=== PATIENT | female | born 1965 | race Two or more races ===

== ENCOUNTER → 2018-03-28 | Outpatient (CLI) | payer OTHER ==
[~2018-03-28] MED LIST: AMLO2.5T2 PO; CETI10CA12 PO; HYDR25TA6 PO; KETO10TA PO; LOSA100T6 PO
== END | disposition home or self-care (01) ==
LOC: RAD 08:04
PROVIDERS: ATTEND Emergency Medicine
DX: K76.0 Fatty (change of) liver, not elsewhere classified (principal)
CPT/HCPCS: 74018; 76700

== ENCOUNTER 2018-09-02 14:46 | Emergency (ER) | payer OTHER ==
[~2018-09-02] VITALS: Ht 157.5 cm; Wt 70.5 kg
[~2018-09-02 14:46] MED LIST changes: +LOSA100T14 PO; -LOSA100T6 PO
--- NOTE | 2018-09-02 15:21 | NUR ---
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
[2018-09-02 15:27] LABS: BASOPHILS # (AUTO) 0.02 x10^3/uL (0-0.1); BASOPHILS % (AUTO) 0 % (0-1); EOSINOPHILS # (AUTO) 0.03 x10^3/uL (0-0.4); EOSINOPHILS % (AUTO) 0 % (1-7); LYMPHOCYTES # (AUTO) 1.81 x10^3/uL (1-3.4); LYMPHOCYTES % (AUTO) 18 % (22-44); MD NO; MEAN CORPUSCULAR HEMOGLOBIN 28.7 pg (27.0-34.8); MEAN CORPUSCULAR HGB CONC 34.7 g/dL (32.4-35.8); MEAN CORPUSCULAR VOLUME 82.7 fL (80-100); MEAN PLATELET VOLUME 8.1 fL (7.4-10.4); MONOCYTES # (AUTO) 0.48 x10^3/uL (0.2-0.8); MONOCYTES % (AUTO) 5 % (2-9); NEUTROPHILS # (AUTO) 7.66 x10^3/uL (1.8-6.8); NEUTROPHILS % (AUTO) 77 % (42-75); PLATELET COUNT 271 x10^3/uL (130-400); RED BLOOD COUNT 4.68 x10^6/uL (3.82-5.3); RED CELL DISTRIBUTION WIDTH 13.2 % (9.6-15.2)
--- NOTE | 2018-09-02 15:30 | NUR ---
PT PLACED ON HEART MONITOR, BP CUFF, PULSE OX. CALL LIGHT WITHIN REACH, PT OFFERED WARM BLANKET.
[2018-09-02 15:42] LABS: ALANINE AMINOTRANSFERASE 35 U/L (12-78); ALBUMIN 4.4 g/dL (3.4-5.0); ANION GAP 11 mmol/L (5-15); CALCIUM 9.6 mg/dL (8.5-10.1); CHLORIDE 105 mmol/L (98-107); CREATININE 1.14 mg/dL (0.55-1.02)
[2018-09-02 15:47] LABS: ALKALINE PHOSPHATASE 126 U/L (45-117); BILIRUBIN,TOTAL 0.4 mg/dL (0.2-1.0); TOTAL PROTEIN 8.6 g/dL (6.4-8.2); TROPONIN I < 0.015 ng/mL (0.000-0.045)
[2018-09-02] MEDS ORDERED: OXYcodone/APAP 5/325MG TABLET ONE (16:13)
[2018-09-02] MEDS ORDERED: PROMETHAZINE 25 MG/ML, 1ML ONE (16:14)
--- NOTE | 2018-09-02 16:23 | NUR ---
PT TO CT.
[2018-09-02] MEDS ORDERED: PROMETHAZINE 25 MG/ML, 1ML IM ONE (16:30)
[2018-09-02] MEDS ORDERED: OXYcodone/APAP 5/325MG TABLET PO ONE (16:30)
--- NOTE | 2018-09-02 16:34 | NUR ---
PT MEDICATED PER ERP ORDER FOR 5/10 ARAUJO WITH NAUSEA. PT DENIES CP SINCE ED VISIT.
--- NOTE | 2018-09-02 16:50 | NUR ---
ALL RESULTS BACK, PT FOR RECHECK.
[2018-09-02 17:55] VITALS: BP 122/61
== END 2018-09-02 17:59 | disposition home or self-care (01) ==
LOC: ED 15:45
DX: R51 Headache (principal); M19.90 Unspecified osteoarthritis, unspecified site
CPT/HCPCS: 36415; 70450; 71045; 80053; 84484; 85025; 93005; 96372; 99284; J2550

== ENCOUNTER 2019-10-17 19:17 | Emergency (ER) | payer OTHER ==
[~2019-10-17] VITALS: Ht 160 cm; Wt 71.0 kg
--- NOTE | 2019-10-17 19:44 | NUR ---
High fever and ARAUJO which started today. She started with dizziness then vomiting. Denies CP. She is slightly SOB. Denies abd/flank pain. Patient is in NAD. Respirations even and unlabored.
[2019-10-17] MEDS ORDERED: ONDANSETRON ODT 4 MG PO ONE (20:00)
[2019-10-17] MEDS ORDERED: IBUPROFEN 800 MG TABLET PO ONE (20:00)
[2019-10-17] MEDS ORDERED: IBUPROFEN 800 MG TABLET ONE (20:01)
[2019-10-17] MEDS ORDERED: ACETAMINOPHEN 500 MG TABLET ONE (20:01)
[2019-10-17] MEDS ORDERED: ONDANSETRON ODT 4 MG ONE (20:04)
[2019-10-17 20:30] LABS: MICROSCOPIC NOT IND
[2019-10-17 20:31] LABS: BASOPHILS # (AUTO) 0.02 x10^3/uL (0-0.1); BASOPHILS % (AUTO) 0 % (0-1); EOSINOPHILS # (AUTO) 0.09 x10^3/uL (0-0.4); EOSINOPHILS % (AUTO) 1 % (1-7); LYMPHOCYTES # (AUTO) 0.89 x10^3/uL (1-3.4); LYMPHOCYTES % (AUTO) 9 % (22-44); MD NO; MEAN CORPUSCULAR HEMOGLOBIN 28.2 pg (27.0-34.8); MEAN CORPUSCULAR HGB CONC 33.2 g/dL (32.4-35.8); MEAN CORPUSCULAR VOLUME 85.1 fL (80-100); MEAN PLATELET VOLUME 7.7 fL (7.4-10.4); MONOCYTES # (AUTO) 0.53 x10^3/uL (0.2-0.8); MONOCYTES % (AUTO) 6 % (2-9); NEUTROPHILS # (AUTO) 8.03 x10^3/uL (1.8-6.8); NEUTROPHILS % (AUTO) 84 % (42-75); PLATELET COUNT 227 x10^3/uL (130-400); RED CELL DISTRIBUTION WIDTH 13.2 % (9.6-15.2)
[2019-10-17 20:34] LABS: CULTURE INDICATED? NO
[2019-10-17 20:37] LABS: ALANINE AMINOTRANSFERASE 41 U/L (12-78); ALBUMIN 3.7 g/dL (3.4-5.0); ANION GAP 6 mmol/L (5-15); CALCIUM 8.5 mg/dL (8.5-10.1); CHLORIDE 106 mmol/L (98-107); CREATININE 0.94 mg/dL (0.55-1.02)
[2019-10-17 20:39] LABS: ALKALINE PHOSPHATASE 117 U/L (45-117); BILIRUBIN,TOTAL 0.4 mg/dL (0.2-1.0); TOTAL PROTEIN 7.6 g/dL (6.4-8.2)
[2019-10-17 20:42] LABS: RAPID INFLUENZA A Negative (Negative); RAPID INFLUENZA B Negative (Negative)
[2019-10-17] MEDS ORDERED: ACETAMINOPHEN 500 MG TABLET PO ONE (21:00)
[2019-10-17 21:18] VITALS: BP 171/82
--- NOTE | 2019-10-17 21:22 | NUR ---
Patient discharge instructions given. All questions and concerns addressed. Note given by ERP for 2 days off work. Patient ambulatory with a steady gait. Belongings with patient.
== END 2019-10-17 21:24 | disposition home or self-care (01) ==
LOC: ED 21:18
DX: B34.9 Viral infection, unspecified (principal); I10 Essential (primary) hypertension; R11.2 Nausea with vomiting, unspecified; R00.0 Tachycardia, unspecified; R06.00 Dyspnea, unspecified
CPT/HCPCS: 36415; 71045; 80053; 81003; 85025; 87400; 93005; 99285; Q0162